=== PATIENT | female | born 1945 | race Caucasian/White ===

== ENCOUNTER → 2019-09-28 16:15 | Outpatient (CLI) | payer MEDICARE, OTHER, SELFPAY ==
--- NOTE | 2019-09-28 | DI.MG.S_ITS ---
BILATERAL DIGITAL SCREENING MAMMOGRAM 3D/2D WITH CAD: 09/28/2019 CLINICAL: Routine screening. Family history of breast cancer. Comparison is made to exams dated: 10/20/2017 mammogram, 08/12/2016 mammogram, 08/23/2014 mammogram, 08/07/2013 mammogram, and 08/05/2011 mammogram - [facility]. The tissue of both breasts is heterogeneously dense. This may lower the sensitivity of mammography. Current study was also evaluated with a Computer Aided Detection (CAD) system. There are benign vascular calcifications in both breasts. No significant masses, calcifications, or other findings are seen in either breast. There has been no significant interval change. IMPRESSION: There is no mammographic evidence of malignancy. A 1 year screening mammogram is recommended. This exam was interpreted at Station ID: [id number]. NOTE: For mammograms, a report in lay terms will be sent to the patient. Approximately 15% of breast malignancies will not be visualized mammographically. In the management of a palpable breast mass, a negative mammogram must not discourage biopsy of a clinically suspicious lesion. Electronically Signed By: Jovanny gibson/ginette:09/28/2019 19:06:48 letter sent: Normal Exam ACR BI-RADS Category 2: Benign Finding(s) 3342F
== END ==
PROVIDERS: Family Provider Naturopath; PCP Internal Medicine; Visit Provider Internal Medicine
DX: Z12.31 Encounter for screening mammogram for malignant neoplasm of breast (principal); Z80.3 Family history of malignant neoplasm of breast
CPT/HCPCS: 77063; 77067

== ENCOUNTER → 2020-01-15 14:12 | Outpatient (CLI) | payer MEDICARE, OTHER, SELFPAY ==
[2020-01-17 04:31] LABS: COVID19 Sendout Not Detected (Not Detected)
== END ==
PROVIDERS: Family Provider Naturopath; PCP Internal Medicine; Visit Provider Registered Nurse
DX: Z11.59 Encounter for screening for other viral diseases (principal)
CPT/HCPCS: 87635

== ENCOUNTER → 2020-06-21 06:53 | Outpatient (CLI) | payer MEDICARE, OTHER, SELFPAY ==
[2020-06-21 08:40] LABS: Add Manual Diff / Slide Review NO; Basophils Absolute Auto 100 /uL (0-100); Basophils Percent Auto 2.1 % (0-2); Eosinophils Absolute Auto 100 /uL (0-450); Eosinophils Percent Auto 2.3 % (2-4); Hemoglobin 12.2 g/dL (12.0-16.0); Lymphocytes Absolute Auto 1100 /uL (1100-4500); Lymphocytes Percent Auto 33.8 % (25-40); Mean Corpuscular HGB Conc 33.1 % (30-36); Mean Corpuscular Volume 93.5 fL (80-100); Monocytes Absolute Auto 500 /uL (0-900); Monocytes Percent Auto 14.7 % (3-14); Neutrophils Absolute Auto 1500 /uL (1500-7000); Neutrophils Percent Auto 47.1 % (50-75); Platelet Count 213 X10^3/uL (150-400); Red Blood Cell Count 3.95 X10^6/uL (4.0-5.2); Red Cell Distribution Width 14.1 % (11.6-14.8); White Blood Cell Count 3.3 X10^3/uL (4.5-11.0)
[2020-06-21 09:13] LABS: Alanine Aminotransferase 15 IU/L (<35); Albumin 4.3 g/dL (3.5-5.0); Albumin Globulin Ratio 1.5 (1.0-2.8); Alkaline Phosphatase 74 U/L (38-126); Aspartate Aminotransferase 34 IU/L (14-36); BUN Creatinine Ratio 19.4 (6-22); Bilirubin Total 0.6 mg/dL (0.2-1.3); Blood Urea Nitrogen 13 mg/dL (7-17); Calcium 9.3 mg/dL (8.4-10.2); Carbon Dioxide 31 mmol/L (22-32); Chloride 100 mmol/L (98-107); Cholesterol 198 mg/dL (140-199); Estimated Glomerular Filt Rate > 60.0 mL/min (>60); Globulin 2.9 g/dL (1.7-4.1); Glucose 91 mg/dL (80-110); HDL Cholesterol 69 mg/dL (40-60); HEMOLYSIS < 15 (0-50); LDL Cholesterol Calculated 118 mg/dL (<100); Potassium 4.3 mmol/L (3.4-5.1); Sodium 135 mmol/L (137-145); Total Protein 7.2 g/dL (6.3-8.2); Triglycerides 53 mg/dL (35-150)
[2020-06-21 09:48] LABS: TSH w/ Reflex to FT4 2.88 uIU/mL (0.47-4.68)
== END ==
PROVIDERS: Family Provider Naturopath; PCP Family Medicine; Referring Provider Family Medicine; Visit Provider Family Medicine
DX: E03.9 Hypothyroidism, unspecified (principal)
CPT/HCPCS: 36415; 80053; 80061; 84443; 85025

== ENCOUNTER → 2020-07-03 11:37 | Outpatient (CLI) | payer MEDICARE, OTHER, SELFPAY ==
--- NOTE | 2020-07-03 11:39 | DI.RAD.S_ITS ---
PROCEDURE: XR HIP W PEL IF DONE RT 2V INDICATIONS: evaluate right hip pain TECHNIQUE: AP pelvis with lateral view(s) of the right hip(s). COMPARISON: None. FINDINGS: Bones: No fractures or dislocations. Pelvic ring appears intact. No suspicious bony lesions. Soft tissues: The visualized bowel gas pattern is normal. No suspicious soft tissue calcifications. IMPRESSION: Minimal hip joint osteoarthritis, no trauma found. Dictated by: Karl Stevens M.D. on 07/03/2020 at 17:47 Approved by: Karl Stevens M.D. on 07/03/2020 at 17:48
--- NOTE | 2020-07-03 11:39 | DI.RAD.S_ITS ---
PROCEDURE: XR LUMBAR SPINE 2-3V INDICATIONS: evaluate right hip pain and low back pain TECHNIQUE: 3 views of the lumbar spine were acquired. COMPARISON: None. FINDINGS: Bones: 5 [id number] vertebrae are present. There is abnormal bony alignment with convex leftward scoliosis centered at the thoracolumbar junction, moderate in severity.. No vertebral body compression fractures. No suspicious bony lesions. Along the lumbosacral spine there is moderate degenerative disc disease from L2 inferiorly, and facet osteoarthritis that also is moderate in severity and somewhat poorly visualized due to the scoliosis and overlying multiple osseous margins that result on the lateral view. Soft tissues: Overlying bowel gas pattern is normal. No suspicious soft tissue calcifications. IMPRESSION: Moderate scoliosis, moderate degenerative disc disease and facet osteoarthritis. No definite compression fracture found. Dictated by: Karl Stevens M.D. on 07/03/2020 at 17:48 Approved by: Karl Stevens M.D. on 07/03/2020 at 17:49
[2020-07-04 08:12] LABS: Fecal Immunochemical Test Negative (Negative)
== END ==
PROVIDERS: Family Provider Naturopath; PCP Family Medicine; Referring Provider Family Medicine; Visit Provider Family Medicine
DX: M54.42 Lumbago with sciatica, left side (principal); G89.29 Other chronic pain; M25.551 Pain in right hip; Z12.11 Encounter for screening for malignant neoplasm of colon
CPT/HCPCS: 72100; 73502; 82274

== ENCOUNTER → 2020-11-14 07:36 | Outpatient (CLI) | payer MEDICARE, OTHER, SELFPAY ==
[2020-11-14] MEDS: COVID-19 VACC, Ad26(JANSSEN)/PF 0.5 ML IM (07:48)
== END ==
PROVIDERS: Family Provider Naturopath; PCP Family Medicine; Visit Provider Internal Medicine
DX: Z23 Encounter for immunization (principal)
CPT/HCPCS: 0031A; 91303

== ENCOUNTER → 2021-04-02 11:53 | Outpatient (CLI) | payer MEDICARE, OTHER, SELFPAY ==
--- NOTE | 2021-04-02 11:54 | DI.US.S_ITS ---
PROCEDURE: US SOFT TISSUE HEAD AND NECK INDICATIONS: LEFT SUBMANDIBULAR LUMP TECHNIQUE: Real-time scanning was performed of the neck region of interest, with image documentation. COMPARISON: None. FINDINGS: Along one edge of the left submandibular gland, within, but slightly expanding the margins of the gland, there is of relatively hypoechoic nodule measuring 1.4 x 0.7 x 1.1 cm. There is increased internal vascularity manifesting as a central the feeding vessel, potentially a hilar vessel. There may be a small punctate associated calcification. The remainder of the submandibular gland appears normal without significant ductal dilatation. IMPRESSION: 1. 1.4 cm relatively hypoechoic, centrally vascular submandibular gland mass. This may be a focal area of a sialoadenitis, potentially neoplasm. Intraglandular lymph node is possible though slightly less likely. Clinical follow-up is recommended and if there is continued growth despite treatment, fine-needle aspiration may be necessary. Dictated by: Mariana Keller M.D. on 04/02/2021 at 14:36 Approved by: Mariana Keller M.D. on 04/02/2021 at 14:44
== END ==
PROVIDERS: PCP Family Medicine; Referring Provider Family Medicine; Visit Provider Family Medicine
DX: R22.1 Localized swelling, mass and lump, neck (principal); K11.9 Disease of salivary gland, unspecified
CPT/HCPCS: 76536

== ENCOUNTER → 2021-09-17 09:29 | Outpatient (CLI) | payer MEDICARE, OTHER, SELFPAY ==
--- NOTE | 2021-09-17 09:31 | DI.MG.S_ITS ---
BILATERAL DIGITAL SCREENING MAMMOGRAM 3D/2D WITH CAD: 09/17/2021 CLINICAL: Routine screening. Family history of breast cancer. Comparison is made to exams dated: 09/28/2019 mammogram, 10/20/2017 mammogram, and 08/12/2016 mammogram - [facility]. The tissue of both breasts is heterogeneously dense. This may lower the sensitivity of mammography. Current study was also evaluated with a Computer Aided Detection (CAD) system. There are benign vascular calcifications in both breasts. No significant masses, calcifications, or other findings are seen in either breast. There has been no significant interval change. IMPRESSION: BENIGN There is no mammographic evidence of malignancy. A 1 year screening mammogram is recommended. This exam was interpreted at Station ID: [id number]. NOTE: For mammograms, a report in lay terms will be sent to the patient. Approximately 15% of breast malignancies will not be visualized mammographically. In the management of a palpable breast mass, a negative mammogram must not discourage biopsy of a clinically suspicious lesion. Electronically Signed By: Torrey tomlinson/ginette:09/17/2021 12:00:57 letter sent: Normal Exam ACR BI-RADS Category 2: Benign Finding(s) 3342F
== END ==
PROVIDERS: PCP Family Medicine; Referring Provider Family Medicine; Visit Provider Family Medicine
DX: Z12.31 Encounter for screening mammogram for malignant neoplasm of breast (principal); Z80.3 Family history of malignant neoplasm of breast
CPT/HCPCS: 77063; 77067

== ENCOUNTER → 2022-02-19 06:31 | Outpatient (CLI) | payer MEDICARE, OTHER, SELFPAY ==
[2022-02-19 07:33] LABS: Add Manual Diff / Slide Review NO; Basophils Absolute Auto 100 /uL (0-100); Basophils Percent Auto 1.9 % (0-2); Eosinophils Absolute Auto 100 /uL (0-450); Eosinophils Percent Auto 2.9 % (2-4); Hematocrit 37.4 % (36-46); Hemoglobin 12.8 g/dL (12.0-16.0); Lymphocytes Absolute Auto 1300 /uL (1100-4500); Lymphocytes Percent Auto 36.2 % (25-40); Mean Corpuscular HGB Conc 34.1 % (30-36); Mean Corpuscular Hemoglobin 31.2 PG (26-34); Mean Corpuscular Volume 91.5 fL (80-100); Monocytes Absolute Auto 500 /uL (0-900); Monocytes Percent Auto 14.1 % (3-14); Neutrophils Absolute Auto 1600 /uL (1500-7000); Neutrophils Percent Auto 44.9 % (50-75); Platelet Count 197 X10^3/uL (150-400); Red Blood Cell Count 4.09 X10^6/uL (4.0-5.2); Red Cell Distribution Width 13.8 % (11.6-14.8); White Blood Cell Count 3.5 X10^3/uL (4.5-11.0)
[2022-02-19 07:48] LABS: Alanine Aminotransferase 16 IU/L (<35); Albumin 4.3 g/dL (3.5-5.0); Albumin Globulin Ratio 1.7 (1.0-2.8); Alkaline Phosphatase 65 U/L (38-126); Aspartate Aminotransferase 31 IU/L (14-36); BUN Creatinine Ratio 15.9 (6-22); Bilirubin Total 0.7 mg/dL (0.2-1.3); Blood Urea Nitrogen 11 mg/dL (7-17); Calcium 9.4 mg/dL (8.4-10.2); Carbon Dioxide 29 mmol/L (22-32); Chloride 99 mmol/L (98-107); Cholesterol 196 mg/dL (140-199); Estimated Glomerular Filt Rate > 60 mL/min (>60); Globulin 2.6 g/dL (1.7-4.1); Glucose 101 mg/dL (80-110); HDL Cholesterol 78 mg/dL (40-60); HEMOLYSIS < 15 (0-50); LDL Cholesterol Calculated 106 mg/dL (<100); Potassium 4.4 mmol/L (3.4-5.1); Sodium 137 mmol/L (137-145); Total Protein 6.9 g/dL (6.3-8.2); Triglycerides 62 mg/dL (35-150)
[2022-02-19 08:16] LABS: TSH w/ Reflex to FT4 1.85 uIU/mL (0.47-4.68)
== END ==
PROVIDERS: PCP Family Medicine; Referring Provider Family Medicine; Visit Provider Family Medicine
DX: E03.9 Hypothyroidism, unspecified (principal); D72.819 Decreased white blood cell count, unspecified; E87.1 Hypo-osmolality and hyponatremia; F41.9 Anxiety disorder, unspecified
CPT/HCPCS: 36415; 80053; 80061; 84443; 85025

== ENCOUNTER → 2023-06-24 15:12 | Outpatient (CLI) | payer MEDICARE, OTHER, SELFPAY ==
--- NOTE | 2023-06-24 | DI.MG.S_ITS ---
BILATERAL DIGITAL SCREENING MAMMOGRAM 3D/2D WITH CAD: 06/24/2023 CLINICAL: Routine screening. Family history of breast cancer. Comparison is made to exams dated: 09/17/2021 mammogram, 09/28/2019 mammogram, and 10/20/2017 mammogram - [facility]. Both breasts are heterogeneously dense, which may obscure small masses (category c / 51-75% glandular tissue). Current study was also evaluated with a Computer Aided Detection (CAD) system. There are benign vascular calcifications in both breasts. No significant masses, calcifications, or other findings are seen in either breast. There has been no significant interval change. IMPRESSION: BENIGN There is no mammographic evidence of malignancy. A 1 year screening mammogram is recommended. Based on the Tyrer Cuzick model (a risk assessment model) the patient's lifetime risk is 12.4% and her 10 year risk is 0.0%. According to the ACR, ACS, and NCCN guidelines, an annual breast MRI exam along with mammogram is recommended if the patient's lifetime risk is 20% or greater. This exam was interpreted at Station ID: [id number]. NOTE: For mammograms, a report in lay terms will be sent to the patient. Approximately 15% of breast malignancies will not be visualized mammographically. In the management of a palpable breast mass, a negative mammogram must not discourage biopsy of a clinically suspicious lesion. Electronically Signed By: Jovanny gibson/ginette:06/25/2023 10:15:15 letter sent: Normal Exam ACR BI-RADS Category 2: Benign Finding(s) 3342F
== END ==
PROVIDERS: PCP Family Medicine; Referring Provider Family Medicine; Visit Provider Family Medicine
DX: Z12.31 Encounter for screening mammogram for malignant neoplasm of breast (principal); Z80.3 Family history of malignant neoplasm of breast
CPT/HCPCS: 77063; 77067

== ENCOUNTER → 2023-08-11 06:57 | Outpatient (CLI) | payer MEDICARE, OTHER, SELFPAY ==
[2023-08-11 08:01] LABS: Add Manual Diff / Slide Review NO; Basophils Absolute Auto 0 /uL (0-100); Basophils Percent Auto 1.2 % (0-2); Eosinophils Absolute Auto 0 /uL (0-450); Eosinophils Percent Auto 0.5 % (2-4); Hemoglobin 12.1 g/dL (12.0-16.0); Lymphocytes Absolute Auto 900 /uL (1100-4500); Mean Corpuscular HGB Conc 34.5 % (30-36); Mean Corpuscular Hemoglobin 31.2 PG (26-34); Mean Corpuscular Volume 90.4 fL (80-100); Monocytes Absolute Auto 600 /uL (0-900); Monocytes Percent Auto 16.1 % (3-14); Neutrophils Absolute Auto 2100 /uL (1500-7000); Neutrophils Percent Auto 58.2 % (50-75); Platelet Count 152 X10^3/uL (150-400); Red Blood Cell Count 3.87 X10^6/uL (4.0-5.2); Red Cell Distribution Width 14.5 % (11.6-14.8); White Blood Cell Count 3.6 X10^3/uL (4.5-11.0)
[2023-08-11 08:03] LABS: Alanine Aminotransferase 24 IU/L (<35); Albumin 4.1 g/dL (3.5-5.0); Albumin Globulin Ratio 1.3 (1.0-2.8); Alkaline Phosphatase 62 U/L (38-126); Aspartate Aminotransferase 33 IU/L (14-36); BUN Creatinine Ratio 36.4 (6-22); Bilirubin Total 0.5 mg/dL (0.2-1.3); Blood Urea Nitrogen 24 mg/dL (7-17); Calcium 9.3 mg/dL (8.4-10.2); Carbon Dioxide 27 mmol/L (22-32); Chloride 100 mmol/L (98-107); Cholesterol 185 mg/dL (140-199); Estimated Glomerular Filt Rate > 60 mL/min (>60); Globulin 3.1 g/dL (1.7-4.1); Glucose 93 mg/dL (80-110); HDL Cholesterol 62 mg/dL (40-60); HEMOLYSIS < 15 (0-50); LDL Cholesterol Calculated 113 mg/dL (<100); Potassium 4.4 mmol/L (3.4-5.1); Sodium 134 mmol/L (137-145); Total Protein 7.2 g/dL (6.3-8.2); Triglycerides 49 mg/dL (35-150)
[2023-08-11 08:34] LABS: TSH w/ Reflex to FT4 2.72 uIU/mL (0.47-4.68)
[2023-08-11 09:21] LABS: Creatinine Urine Random 77.3 mg/dL
[2023-08-11 09:26] LABS: Microalbumi Creatinin Ratio Ur 16.8 ug/mg CR (<30); Microalbumin Urine Random 1.3 mg/dL (0-1.6)
== END ==
PROVIDERS: PCP Family Medicine; Referring Provider Family Medicine; Visit Provider Family Medicine
DX: D72.819 Decreased white blood cell count, unspecified (principal); E03.9 Hypothyroidism, unspecified; F41.9 Anxiety disorder, unspecified; E87.1 Hypo-osmolality and hyponatremia
CPT/HCPCS: 36415; 80053; 80061; 82043; 82570; 84443; 85025

== ENCOUNTER 2024-02-08 12:49 | Emergency (ER) | payer MEDICARE, OTHER, SELFPAY ==
[2024-02-08 12:56] VITALS: BP 189/97; PULSE 76; RESP 16; TEMP 36.6; O2SAT 97
--- NOTE | 2024-02-08 13:00 | DI.CT.S_ITS ---
PROCEDURE: CT HEAD/BRAIN WO CON INDICATIONS: headache after hitting head this morning. TECHNIQUE: Noncontrast 4.5 mm thick angled axial sections acquired from the foramen magnum to the vertex, with coronal and sagittal reformats. For radiation dose reduction, the following was used: automated exposure control, adjustment of mA and/or kV according to patient size. COMPARISON: None. FINDINGS: Image quality: Diagnostic CSF spaces: Basal cisterns are patent. Lateral ventricles are symmetric. Volume: Vascular calcifications. Periventricular white matter disease is commonly seen with chronic microangiopathy. Volume loss is present. These findings are [id number] Brain: No intracranial hemorrhage. Meza-white differentiation is grossly maintained. Craniofacial structures: No displaced fracture within the field of view. Paranasal sinuses are clear where visualized IMPRESSION: No acute intracranial pathology. Dictated by: Ag Rao M.D. on 02/08/2024 at 14:08 Approved by: Ag Rao M.D. on 02/08/2024 at 14:10
--- NOTE | 2024-02-08 13:00 | DI.RAD.S_ITS ---
PROCEDURE: XR HIP W PEL IF DONE RT 2V INDICATIONS: fall right hip pain TECHNIQUE: AP pelvis with lateral view(s) of the right hip(s). COMPARISON: [facility], [place], XR HIP W PEL IF DONE RT 2V, 07/03/2020, 11:36. FINDINGS: Bones: Mild bilateral hip arthrosis. The pelvic ring appears intact. No displaced fracture or dislocation. Soft tissues: Pelvic calcifications are probably phleboliths. Lumbosacral degenerative changes. IMPRESSION: Mild bilateral hip arthrosis. No acute radiographic abnormality. If there is high concern for occult injury, consider repeat radiography or cross-sectional imaging. Dictated by: Ag Rao M.D. on 02/08/2024 at 14:00 Approved by: Ag Rao M.D. on 02/08/2024 at 14:00
--- NOTE | 2024-02-08 13:00 | DI.RAD.S_ITS ---
PROCEDURE: XR THORACIC SPINE 3V INDICATIONS: fall TECHNIQUE: 3 views of the thoracic spine were acquired. COMPARISON: None. FINDINGS: Bones: There is wedging of the T6 vertebral body, age indeterminate. Mild overall degenerative changes. Rightward spinal curvature partially seen at the thoracolumbar junction. Soft tissues: No suspicious calcifications. Partially seen degenerative changes also affecting the cervical spine. IMPRESSION: Age-indeterminate mild height loss of the T6 vertebral body. Mild degenerative changes are seen elsewhere as well. Rightward spinal curvature at the thoracolumbar junction. If there is high concern for further derangement, consider MRI evaluation. Dictated by: Ag Rao M.D. on 02/08/2024 at 14:01 Approved by: Ag Rao M.D. on 02/08/2024 at 14:02
[2024-02-08 17:05] VITALS: BP 184/87; PULSE 76; RESP 20; O2SAT 99
--- NOTE | 2024-02-08 18:24 | ED_ITS ---
HPI - Fall General Chief Complaint: Fall Stated Complaint: Fell/hit head Time Seen by Provider: 02/08/24 17:55 Source: patient Mode of arrival: Ambulatory History of Present Illness HPI Narrative: Patient is 78-year-old female he was not on anticoagulation earlier today sustained a mechanical fall where she fell and hit the back of her head. She also landed on her right hip. She states she sometimes gets ?twinges? in her head but is currently not having any head pain. She was ambulatory. No upper extremity injuries. Does have some back discomfort as well but this is not necessarily new. She went to the walk-in clinic and was sent to the emergency department for evaluation. Related Data Previous Rx's Medication Instructions Recorded bupropion HCl 150 mg 24 hr tablet, 150 mg PO QAM #90 tabs 08/02/23 extended release citalopram 20 mg tablet 20 mg PO DAILY #90 tabs 08/02/23 [employer] Thyroid 15 mg tablet (thyroid See Rx Instructions .Route 09/09/23 (pork)) .COMPLEX #90 tabs Allergies Allergy/AdvReac Type Severity Reaction Status Date / Time No Known Drug Allergies Allergy Verified 02/08/24 12:59 Review of Systems Review of Systems ROS Unobtainable: All systems reviewed & are unremarkable except as noted in HPI and below Patient History Medical History Nodule of skin of neck Leukopenia Hyponatremia Degenerative joint disease of low back Low back pain with right-sided sciatica Right hip pain Low back pain with sciatica Anxiety Hypothyroidism Social History Smoking Status: Never smoker second hand exposure: Yes ( was prior smoker ) alcohol intake: current substance use type: does not use Smoking Status: Never smoker Substance Use Type: does not use Exam Initial Vital Signs Initial Vital Signs: Vital Signs Temperature 98 F 02/08/24 12:56 Pulse Rate 76 02/08/24 12:56 Respiratory Rate 16 02/08/24 12:56 Blood Pressure 189/97 H 02/08/24 12:56 Pulse Oximetry 97 02/08/24 12:56 Oxygen Delivery Method Room Air 02/08/24 12:56 Const General: cooperative, comfortable and No ill appearing HENWI Head: normal to inspection and normocephalic Back/Spine/Pelvis Cervical Spine: No cervical muscular tenderness and No cervical spinal tend erness Thoracic/Lumbar Spine: No paraspinal tenderness, thoracic spinal tenderness and No lumbar spinal tenderness Skin General: no rashes or lesions noted Neuro General: patient alert, patient awake and moves all extremities Extrem General: capillary refill normal Course Orders Ordered: ED Orders 02/08/24 13:00 CT head/brain wo con Stat XR hip w pel if done RT 2V Stat XR thoracic spine 3V Stat Vital Signs Vital signs: Vital Signs - 8 hr 02/08/24 18:44 Pulse Rate 75 Respiratory Rate 16 Blood Pressure 197/109 H Pulse Oximetry 98 Oxygen Delivery Method Room Air MDM - Fall Imaging Data CT scan - head: Radiologist's Impression: PROCEDURE: CT HEAD/BRAIN WO CON INDICATIONS: headache after hitting head this morning. TECHNIQUE: Noncontrast 4.5 mm thick angled axial sections acquired from the foramen magnum to the vertex, with coronal and sagittal reformats. For radiation dose reduction, the following was used: automated exposure control, adjustment of mA and/or kV according to patient size. COMPARISON: None. FINDINGS: Image quality: Diagnostic CSF spaces: Basal cisterns are patent. Lateral ventricles are symmetric. Volume: Vascular calcifications. Periventricular white matter disease is commonly seen with chronic microangiopathy. Volume loss is present. These findings are [id number] Brain: No intracranial hemorrhage. Meza-white differentiation is grossly maintained. Craniofacial structures: No displaced fracture within the field of view. Paranasal sinuses are clear where visualized IMPRESSION: No acute intracranial pathology. Extremity x-ray #1: Radiologist's Impression: PROCEDURE: XR HIP W PEL IF DONE RT 2V INDICATIONS: fall right hip pain TECHNIQUE: AP pelvis with lateral view(s) of the right hip(s). COMPARISON: [facility], XR HIP W PEL IF DONE RT 2V, 07/03/2020, 11:36. FINDINGS: Bones: Mild bilateral hip arthrosis. The pelvic ring appears intact. No displaced fracture or dislocation. Soft tissues: Pelvic calcifications are probably phleboliths. Lumbosacral degenerative changes. IMPRESSION: Mild bilateral hip arthrosis. No acute radiographic abnormality. If there is high concern for occult injury, consider repeat radiography or cross-sectional imaging. T-spine x-ray: Radiologist's Impression: PROCEDURE: XR THORACIC SPINE 3V INDICATIONS: fall TECHNIQUE: 3 views of the thoracic spine were acquired. COMPARISON: None. FINDINGS: Bones: There is wedging of the T6 vertebral body, age indeterminate. Mild overall degenerative changes. Rightward spinal curvature partially seen at the thoracolumbar junction. Soft tissues: No suspicious calcifications. Partially seen degenerative changes also affecting the cervical spine. IMPRESSION: Age-indeterminate mild height loss of the T6 vertebral body. Mild degenerative changes are seen elsewhere as well. Rightward spinal curvature at the thoracolumbar junction. If there is high concern for further derangement, consider MRI evaluation. [facility] Narrative Medical decision making narrative: Thoracic spine x-ray does show a T6 compression fracture and she does have some mild tenderness over this area however this is not necessarily new tenderness. She has never been told that she has had a compression fracture in the past. The rest of her imaging studies are unremarkable. She was ambulatory. She was alert and oriented. She has not on anticoagulation. We will hold on further radiologic studies for now. Will discharge patient home with return precautions. She expressed understanding and agreement plan. Per her report this was a mechanical fall. Discharge Plan Departure Patient Disposition: Home Clinical Impression: Fall, Compression fracture of T6 vertebra Instructions: How to Prevent Falls Activity Restrictions/Additional Instructions: Continue to take all of your medications as directed. Contact your primary care provider for a follow-up. Return to the emergency department for new or worsening symptoms. Prescriptions: No Action thyroid (pork) [[employer]ETING SPECIALIST Thyroid] 15 mg tablet See Rx Instructions .ROUTE .COMPLEX Qty: 90 1RF Dose Instruction: TAKE ONE TABLET BY MOUTH EVERY MORNING Rx Instructions: TAKE ONE TABLET BY MOUTH EVERY MORNING citalopram 20 mg tablet 20 mg PO DAILY Qty: 90 3RF bupropion HCl 150 mg tablet extended release 24 hr 150 mg PO QAM Qty: 90 3RF Referrals: Vu Esparza MD [Primary Care Provider] - Stand Alone Forms: Patient Portal/API
[2024-02-08 18:44] VITALS: BP 197/109; PULSE 75; RESP 16; O2SAT 98
== END 2024-02-08 18:44 | disposition home or self-care (01) ==
PROVIDERS: Emergency Provider Emergency Medicine; PCP Family Medicine
DX: S22.050A Wedge compression fracture of T5-T6 vertebra, initial encounter for closed fracture (principal); M25.551 Pain in right hip; R51.9 Headache, unspecified; S09.90XA Unspecified injury of head, initial encounter; W18.30XA Fall on same level, unspecified, initial encounter
CPT/HCPCS: 70450; 72072; 73502; 99284

== ENCOUNTER → 2024-04-19 06:45 | Outpatient (CLI) | payer MEDICARE, OTHER, SELFPAY ==
[2024-04-19 07:59] LABS: Add Manual Diff / Slide Review NO; Basophils Absolute Auto 100 /uL (0-100); Basophils Percent Auto 1.8 % (0-2); Eosinophils Absolute Auto 100 /uL (0-450); Eosinophils Percent Auto 2.4 % (2-4); Hematocrit 36.9 % (36-46); Hemoglobin 12.5 g/dL (12.0-16.0); Lymphocytes Absolute Auto 1000 /uL (1100-4500); Lymphocytes Percent Auto 25.5 % (25-40); Mean Corpuscular Volume 91.1 fL (80-100); Monocytes Absolute Auto 500 /uL (0-900); Monocytes Percent Auto 11.6 % (3-14); Neutrophils Absolute Auto 2400 /uL (1500-7000); Neutrophils Percent Auto 58.7 % (50-75); Platelet Count 245 X10^3/uL (150-400); Red Blood Cell Count 4.05 X10^6/uL (4.0-5.2); Red Cell Distribution Width 13.3 % (11.6-14.8)
[2024-04-19 08:24] LABS: Alanine Aminotransferase 16 IU/L (<35); Albumin 4.2 g/dL (3.5-5.0); Albumin Globulin Ratio 1.6 (1.0-2.8); Alkaline Phosphatase 89 U/L (38-126); Aspartate Aminotransferase 30 IU/L (14-36); BUN Creatinine Ratio 21.1 (6-22); Bilirubin Total 0.6 mg/dL (0.2-1.3); Blood Urea Nitrogen 15 mg/dL (7-17); Calcium 9.3 mg/dL (8.4-10.2); Carbon Dioxide 30 mmol/L (22-32); Chloride 97 mmol/L (98-107); Cholesterol 182 mg/dL (140-199); Estimated Glomerular Filt Rate > 60 mL/min (>60); Globulin 2.7 g/dL (1.7-4.1); Glucose 93 mg/dL (80-110); HDL Cholesterol 71 mg/dL (40-60); HEMOLYSIS < 15 (0-50); LDL Cholesterol Calculated 102 mg/dL (<100); Potassium 4.1 mmol/L (3.4-5.1); Sodium 135 mmol/L (137-145); Total Protein 6.9 g/dL (6.3-8.2); Triglycerides 47 mg/dL (35-150)
[2024-04-19 08:51] LABS: TSH w/ Reflex to FT4 3.14 uIU/mL (0.47-4.68)
[2024-04-20 03:37] LABS: Apolipoprotein B 78 mg/dL (<90)
== END ==
PROVIDERS: PCP Family Medicine; Referring Provider Family Medicine; Visit Provider Family Medicine
DX: E03.9 Hypothyroidism, unspecified (principal); I10 Essential (primary) hypertension; E87.1 Hypo-osmolality and hyponatremia; D72.819 Decreased white blood cell count, unspecified
CPT/HCPCS: 36415; 80053; 80061; 82172; 84443; 85025

== ENCOUNTER → 2024-04-25 15:31 | Outpatient (CLI) | payer MEDICARE, OTHER, SELFPAY | LOC: LAB 15:33 | PROVIDERS: PCP Family Medicine; Referring Provider Family Medicine; Visit Provider Family Medicine | DX: Z12.11 Encounter for screening for malignant neoplasm of colon (principal) | CPT/HCPCS: 82274 ==

== ENCOUNTER → 2024-06-26 16:01 | Outpatient (CLI) | payer MEDICARE, OTHER, SELFPAY ==
--- NOTE | 2024-06-26 16:02 | DI.MG.S_ITS ---
BILATERAL DIGITAL SCREENING MAMMOGRAM 3D/2D WITH CAD: 06/26/2024 CLINICAL: Routine screening. Family history of breast cancer. Comparison is made to exams dated: 06/24/2023 mammogram, 09/17/2021 mammogram, and 09/28/2019 mammogram - [facility]. The breasts are heterogeneously dense, which may obscure small masses (category c / 51-75% glandular tissue). Current study was also evaluated with a Computer Aided Detection (CAD) system. There are benign vascular calcifications in both breasts. No significant masses, calcifications, or other findings are seen in either breast. There has been no significant interval change. IMPRESSION: BENIGN There is no mammographic evidence of malignancy. A 1 year screening mammogram is recommended. Based on the Tyrer Cuzick model (a risk assessment model) the patient's lifetime risk is 11.2% and her 10 year risk is 0.0%. According to the ACR, ACS, and NCCN guidelines, an annual breast MRI exam along with mammogram is recommended if the patient's lifetime risk is 20% or greater. This exam was interpreted at Station ID: [id number]. NOTE: For mammograms, a report in lay terms will be sent to the patient. Approximately 15% of breast malignancies will not be visualized mammographically. In the management of a palpable breast mass, a negative mammogram must not discourage biopsy of a clinically suspicious lesion. Electronically Signed By: Melanie Gibbs M.D., Ph.D. alexandru/ginette:06/28/2024 01:18:31 letter sent: Normal Exam ACR BI-RADS Category 2: Benign
== END ==
PROVIDERS: PCP Family Medicine; Referring Provider Family Medicine; Visit Provider Family Medicine
DX: Z12.31 Encounter for screening mammogram for malignant neoplasm of breast (principal); Z80.3 Family history of malignant neoplasm of breast; R92.333 Mammographic heterogeneous density, bilateral breasts
CPT/HCPCS: 77063; 77067

== ENCOUNTER → 2025-06-27 16:02 | Outpatient (CLI) | payer MEDICARE, OTHER, SELFPAY ==
--- NOTE | 2025-06-27 16:35 | DI.MG.S_ITS ---
MM screening mammo BI: 06/27/2025. BI-RADS: 0 CLINICAL: 79-year old female for bilateral screening mammogram. Tyrer-Cuzick lifetime risk of 5.3%. Current reported family history of breast cancer: sister. PRIOR EXAMS 06/26/2024, 06/24/2023, 09/17/2021, 09/28/2019, MAMMOGRAPHY TECHNIQUE: 2D and 3D (tomosynthesis) digital mammographic views obtained, with additional images as needed for full coverage. Current study was also evaluated with a Computer Aided Detection (CAD) system. DENSITY C. The breasts are heterogeneously dense, which may obscure small masses. MAMMOGRAPHY FINDINGS Right: There are no suspicious masses, calcifications, or other findings in the breast. Left: MLO only, Upper, Middle depth: Asymmetry needing additional imaging evaluation. Possible asymmetry is noted. IMPRESSION: Right * No evidence of malignancy with benign findings. Left (Asymmetry): MLO only, Upper, Middle depth * Incomplete - asymmetry needing additional imaging evaluation. RECOMMENDATIONS Left: MLO only, Upper, Middle depth * Further evaluation with diagnostic mammography and diagnostic ultrasound. Ultrasound to be performed only if needed. OVERALL ASSESSMENT CATEGORY BI-RADS-0: Incomplete - Need Additional Imaging Evaluation. ELECTRONICALLY SIGNED: Jarred Lerma M.D. on 06/28/2025 at 10:18:37 AM PT Interpreting Station ID: [id number]
== END ==
LOC: MAMMO 16:03
PROVIDERS: PCP Family Medicine; Referring Provider Family Medicine; Visit Provider Family Medicine
DX: Z12.31 Encounter for screening mammogram for malignant neoplasm of breast (principal); R92.333 Mammographic heterogeneous density, bilateral breasts; Z80.3 Family history of malignant neoplasm of breast
CPT/HCPCS: 77063; 77067

== ENCOUNTER → 2025-07-27 07:41 | Outpatient (CLI) | payer MEDICARE, OTHER, SELFPAY ==
--- NOTE | 2025-07-27 07:45 | DI.MG.S_ITS ---
MM diagnostic mammo unilat LT: 07/27/2025. BI-RADS: 2 CLINICAL: 80-year old female for left diagnostic mammogram that is a recall from screening on 06/27/2025. Tyrer-Cuzick lifetime risk of 4.7%. Current reported family history of breast cancer: sister. PRIOR EXAMS: Mammogram(s): 06/27/2025, 06/26/2024, 06/24/2023, 09/17/2021, 09/28/2019, 10/20/2017, 08/12/2016, 08/23/2014. MAMMOGRAPHY TECHNIQUE: 2D and 3D (tomosynthesis) digital mammographic views obtained, with additional images as needed for full coverage. Current study was also evaluated with a Computer Aided Detection (CAD) system. DENSITY Left: C. The breast is heterogeneously dense, which may obscure small masses. MAMMOGRAPHY FINDINGS Left: MLO only, Upper, Middle depth: Correlating with findings on screening mammogram, there is an asymmetry seen only on one view. Upon further review, this asymmetry is stable dating back to 08/23/2014, compatible with a benign etiology. IMPRESSION: Left * No evidence of malignancy with benign findings. RECOMMENDATIONS Bilateral * Annual screening mammography. COMMENTS: Findings and recommendations were conveyed to the patient during today's evaluation. OVERALL ASSESSMENT CATEGORY BI-RADS-2: Benign. The [employer] recommends annual screening mammography beginning at age 40 for women with average risk of breast cancer. ELECTRONICALLY SIGNED: Reny Mata M.D. on 07/27/2025 at 08:31:11 AM PT Interpreting Station ID: [id number]
== END ==
LOC: MAMMO 07:43
PROVIDERS: PCP Family Medicine; Referring Provider Family Medicine; Visit Provider Family Medicine
DX: R92.8 Other abnormal and inconclusive findings on diagnostic imaging of breast (principal); R92.332 Mammographic heterogeneous density, left breast; Z80.3 Family history of malignant neoplasm of breast
CPT/HCPCS: 77065; G0279